=== PATIENT | female | born 1980 | race Caucasian/White ===

== ENCOUNTER 2018-12-26 21:30 | Emergency (ER) | payer OTHER ==
--- NOTE | 2018-12-26 23:43 | OBHP ---
Datetime: 12/26/2018 22:30 IP Adm Impression: , intrauterine IP Chief Complaint Other: Spotting uo micturition IP Admit Plan: Discharge home Admit Comment, IP Provider: This is a private patient of Dr. Prasanna Varner 38 y.o. , LMP 05/29/18, FRANNY 03/13/19, EGA 29 weeks per patient by sono at 9 weeks presents for evaluation of light vagnal spottting noted upon wiping herself after voiding at apporximately 2100 ho urs. She contacted her provate OB who instructed her observe after another void and to go to the hosp [facility]. Patient states no further blood noted after a subsequent void; did note trace spotting on a rosales tiliner. (+) FM; denies any LOF or abdominal tightening. (+) occasional discomfort in RUQ. No headach es, nausea or vomiting. (+) good appetite. course: noted for 1) low lying placenta; 2) hypothyroid; 3) AMA. P Ob: primip P MEDICAL DOCTOR NUCLEAR MEDICINE: 14 x 35-40 x 3 PMH: Age 20, hypothyroid. Vitiligo PSH: 2016, LEEP Allergies: penicillins = hives Meds: PNV, Levothyroxine 120 micrograms, Leothyronine; Vit D3, B12, Kelp - each, once a day Soc Hx: denies tobacco, illicit drug or EtOH use. x 2 years. 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 Father alive 64 - borderline DM. P.E.: as above. WD in NAD. Awake, alert, oriented to time, person and place. Pleasant. Accompanied by Assessment: 38 y.o. P0, 29 weeks, vaginal spotting most likely due to vaginal candidiasis. Categor y 1 tracing. Clinically stable. Plan: 1) Dr. Varner to call in prescription for antifungal inthe AM 2) Discharge home 3) Reviewed S/S PTL 4) continue NPV 5) Keep scheduled appointment 01/07/19 - as per, and discussed with, Dr. Varner Pelvic Type - PN: Adequate Extremities - PN: Normal Abdomen - PN: Normal Back - PN: Normal Breast - PN: Not Done Lungs - PN: Normal Heart - PN: Normal Thyroid - PN: Not Done Neurologic - PN: Normal HEENT - PN: Normal General - PN: Normal FHR - Baseline A Provider: [id number] Contraction Comments Provider: none Comments, ACOG Physical Exam: Abdomen: Gravid. Soft. Non tender in all quadrants Perineum: no lesion, no blood, no discharge SSE: moderate amount of particulate, thick white discharge. No blood noted. No lesions noted on ce rvix. All other systemsreviwed and are negative Gestation - Est Wks by US: 29.0 EGA AdmitDate IP: 29.0 Vital Signs Provider: Reviewed; Within Normal Limits IP Chief Complaint: Other NICHD Variability Prov Fetus A: Moderate 6-25bpm NICHD Accel Fetus A IP Provider: 10X10 FHR Category Provider Fetus A: Category I NICHD Decel Fetus A IP Provider: None Dilatation, Provider: 0 Genitourinary Exam: Abnormal DTRs - PN: Not Done
[2018-12-27 11:13] VITALS: BP 118/80; PULSE 85; TEMP 98.5; O2SAT 97
== END 2018-12-26 22:50 | disposition home or self-care (01) ==
LOC: C.EROB 21:30
DX: O26.853 Spotting complicating pregnancy, third trimester (principal); O98.813 Other maternal infectious and parasitic diseases complicating pregnancy, third trimester; B37.3 Candidiasis of vulva and vagina; Z3A.29 29 weeks gestation of pregnancy